=== PATIENT | female | born 1985 | race Caucasian/White ===

== ENCOUNTER 2017-09-20 02:16 | Emergency (ER) | payer OTHER ==
[~2017-09-20] VITALS: Ht 170.2 cm; Wt 60.4 kg
[~2017-09-20 02:16] MED LIST: AMITRIPTYLINE H25 MG PO; ANAPROX DS550 M1 PO; AUGMENTIN875 MG PO; CLONAZEPAM0.5 MG PO; CYCLOBENZAPRINE5 MG PO; FLEXERIL10 MG PO; GABAPENTIN300 MG PO; IBS MEDICATION; IBUPROFEN800 MG PO; KEPPRA500 MG PO; KETOROLAC TROME10 MG PO; NORCO 5/3251 TABLET PO; PERCOCET 5/31 TABLET PO; TIZANIDINE HCL2 MG PO; ZOFRAN ODT4 MG PO
[2017-09-20 02:31] LABS: APPEARANCE CLOUDY ((CLEAR)); BILIRUBIN NEGATIVE; BLOOD NEGATIVE; COLOR YELLOW ((YELLOW)); GLUCOSE (STRIP) 150; KETONES NEGATIVE; LEUKOCYTES NEGATIVE; NITRITE NEGATIVE; PROTEIN (STRIP) NEGATIVE; SPECIFIC GRAVITY 1.018 (1.000-1.030); UROBILINOGEN 0.2 MG/DL (0.2-1.0)
[2017-09-20 02:34] LABS: HEMATOCRIT 38.6 % (36.0-46.0); HEMOGLOBIN 12.5 G/DL (11.9-15.5); MCH 29.6 PG (29.0-34.0); MCHC 32.4 G/DL (30.0-36.0); MCV 91.5 FL (83-99); PLATELET COUNT 193 K/uL (156-360); RBC DIS.WIDTH-SD 43.4 % (39-53); RED BLOOD COUNT 4.22 M/uL (3.80-5.20); WHITE BLOOD COUNT 8.4 K/uL (4.1-10.2)
[2017-09-20 02:41] LABS: ALBUMIN 3.9 g/dL (3.2-4.8); CHLORIDE 107 mEq/L (99-109); POTASSIUM 3.7 mEq/L (3.7-5.4); SODIUM 141 mEq/L (136-147)
[2017-09-20 02:44] LABS: GLUCOSE 224 mg/dL (70-99)
[2017-09-20 02:45] LABS: TOTAL BILIRUBIN 0.3 mg/dL (0.0-1.0)
[2017-09-20 02:47] LABS: EPITHELIAL CELLS RARE /HPF; MUCUS NONE SEEN /LPF; RED BLOOD CELLS 0-5 /HPF (0-5); WHITE BLOOD CELLS 0-5 /HPF (0-5)
[2017-09-20 02:47] LABS: ALKALINE PHOSPHATASE 129 IU/L (3-129); CREATININE 0.7 mg/dL (0.6-1.3); GFR ESTIMATE (CALCULATED) > 59 mL/min/
[2017-09-20 02:48] LABS: AMORPHOUS URATES CRYSTALS 2+; BACTERIA RARE /HPF; UCUL ADDED? NO
[2017-09-20 02:48] LABS: UREA NITROGEN (BUN) 10 mg/dL (9-23)
[2017-09-20 02:49] LABS: AST (GOT) 38 IU/L (2-34)
[2017-09-20 02:50] LABS: ALT (GPT) 146 IU/L (3-49)
[2017-09-20 02:56] LABS: QUANTITATIVE HCG < 4.0 MIU/ML
[2017-09-20 06:03] LABS: CANDIDA DNA PROBE NEGATIVE; GARDNERELLA DNA PROBE POSITIVE; TRICHOMONAS DNA PROBE NEGATIVE
[2017-09-20] MEDS ORDERED: FLAGYL500 MG PO (06:44)
[2017-09-20 07:44] VITALS: BP 102/59
[2017-09-20 12:44] LABS: SOURCE SWAB
== END 2017-09-20 07:48 | disposition home or self-care (01) ==
LOC: EME 02:16
PROVIDERS: Emergency Medicine
DX: N76.0 Acute vaginitis (principal); R10.31 Right lower quadrant pain; R11.2 Nausea with vomiting, unspecified; R35.0 Frequency of micturition; R39.15 Urgency of urination; Z90.49 Acquired absence of other specified parts of digestive tract; Z87.442 Personal history of urinary calculi; F17.200 Nicotine dependence, unspecified, uncomplicated
CPT/HCPCS: 74177; 76856; 80053; 81003; 84702; 85027; 87210; 87480; 87491; 87510; 87591; 87660; 99281; 99285; J0692; J0696; J2270; J2405; J3370; J7030; J7050

== ENCOUNTER 2018-01-28 22:31 | Emergency (ER) | payer OTHER ==
[~2018-01-28] VITALS: Ht 172.7 cm; Wt 71.4 kg
[~2018-01-28 22:31] MED LIST changes: +FLAGYL500 MG PO
[2018-01-28 23:37] LABS: HEMATOCRIT 40.9 % (36.0-46.0); HEMOGLOBIN 13.9 G/DL (11.9-15.5); MCH 31.8 PG (29.0-34.0); MCV 93.6 FL (83-99); PLATELET COUNT 100 K/uL (156-360); RBC DIS.WIDTH-CV 12.3 % (11.8-14.6); RBC DIS.WIDTH-SD 42.7 % (39-53); RED BLOOD COUNT 4.37 M/uL (3.80-5.20); WHITE BLOOD COUNT 8.9 K/uL (4.1-10.2)
[2018-01-29 00:11] LABS: ALBUMIN 4.1 G/DL (3.2-4.8); ALKALINE PHOSPHATASE 76 IU/L (3-129); ALT (GPT) 91 IU/L (3-49); AST (GOT) 49 IU/L (2-34); CHLORIDE 104 MEQ/L (99-109); CREATININE 0.6 MG/DL (0.6-1.3); GFR ESTIMATE (CALCULATED) > 59 mL/min/; GLUCOSE 84 mg/dL (70-99); SODIUM 139 MEQ/L (136-147); TOTAL BILIRUBIN 0.5 MG/DL (0.0-1.0); UREA NITROGEN (BUN) 8 mg/dL (9-23)
[2018-01-29 00:13] LABS: QUANTITATIVE HCG < 4.0 MIU/ML
[2018-01-29 01:57] LABS: APPEARANCE CLEAR ((CLEAR)); BILIRUBIN NEGATIVE; BLOOD NEGATIVE; COLOR YELLOW ((YELLOW)); GLUCOSE (STRIP) NEGATIVE; KETONES NEGATIVE; LEUKOCYTES NEGATIVE; NITRITE NEGATIVE; PROTEIN (STRIP) NEGATIVE; UCUL ADDED? NO; UROBILINOGEN 0.2 MG/DL (0.2-1.0)
[2018-01-29 02:00] LABS: SPECIFIC GRAVITY > 1.060 (1.000-1.030)
[2018-01-29] MEDS ORDERED: MIRALAX255 GM PO (02:13)
[2018-01-29] MEDS ORDERED: INDOCIN50 MG PO (02:13)
[2018-01-29] MEDS ORDERED: NORCO 7.5/321 TABLET PO (02:13)
[2018-01-29 03:32] VITALS: BP 108/67
== END 2018-01-29 03:36 | disposition home or self-care (01) ==
LOC: EME 22:31
DX: N94.6 Dysmenorrhea, unspecified (principal); N83.201 Unspecified ovarian cyst, right side; E86.0 Dehydration; K59.00 Constipation, unspecified; K58.9 Irritable bowel syndrome, unspecified; F17.200 Nicotine dependence, unspecified, uncomplicated; Z90.49 Acquired absence of other specified parts of digestive tract; Z88.6 Allergy status to analgesic agent
CPT/HCPCS: 74177; 76801; 80053; 81003; 84702; 85027; 99281; 99285; J1885; J3010; J7030